=== PATIENT | female | born 1995 | race Caucasian/White ===

== ENCOUNTER 2018-03-31 21:39 | Inpatient (IN) | payer BC ==
[2018-03-31] MEDS ORDERED: METHYLERGONOVINE 0.2 MG INJ IM (23:30)
[2018-03-31] MEDS ORDERED: OXYTOCIN 30 UNITS/LR 500 ML IV (23:30)
[2018-03-31] MEDS ORDERED: CARBOPROST 250 MCG INJ IM (23:30)
[2018-03-31] MEDS ORDERED: LIDOCAINE 1% (MPF) 30 ML INJ INJ (23:30)
[2018-03-31] MEDS ORDERED: MISOPROSTOL 200 MCG TAB PR (23:30)
[2018-03-31] MEDS: ACETAMINOPHEN 500 MG TAB PO (23:31)
[2018-04-01] MEDS: LACTATED RINGER'S 1,000 ML IV* ×4 (00:12→23:32)
[2018-04-01 00:25] LABS: ADD MAN DIFF? NO
[2018-04-01 00:36] LABS: ABNORMAL IP MESSAGE 1; BASOPHILS % 0.4 % (0.0-2.0); EOSINOPHILS # 0.1 10^3/ul (0.0-0.5); EOSINOPHILS % 1.5 % (0.0-7.0); HEMATOCRIT 28.9 % (37.0-47.0); HEMOGLOBIN 9.1 g/dl (12.0-16.0); LYMPHOCYTES # 2.2 10^3/ul (0.8-2.9); LYMPHOCYTES % 27.1 % (18.0-55.0); MEAN CORPUSCULAR HEMOGLOBIN 24.3 pg (29.0-33.0); MEAN CORPUSCULAR HGB CONC 31.5 g/dl (32.0-37.0); MEAN CORPUSCULAR VOLUME 77.3 fl (72.0-104.0); MONOCYTE # 0.7 10^3/ul (0.3-0.9); MONOCYTES % 8.1 % (0.0-13.0); NEUTROPHILS % 62.5 % (30.0-74.0); PLATELET COUNT 186 10^3/UL (140-415); RED BLOOD COUNT 3.74 10^6/ul (4.20-5.40); RED CELL DISTRIBUTION WIDTH 20.5 % (11.5-14.5)
[2018-04-01 00:45] LABS: ALANINE AMINOTRANSFERASE 28 IU/L (13-69); ALBUMIN 2.8 g/dl (3.3-4.9); ALKALINE PHOSPHATASE 287 IU/L (42-121); ANION GAP 12 (8-16); ASPARTATE AMINO TRANSFERASE 29 IU/L (15-46); BILIRUBIN,INDIRECT 0.2 mg/dl (0-1.1); BILIRUBIN,TOTAL 0.2 mg/dl (0.2-1.3); BLOOD UREA NITROGEN 9 mg/dl (7-20); CALCIUM 9.1 mg/dl (8.4-10.2); CARBON DIOXIDE 23 mmol/L (21-31); CHLORIDE 106 mmol/L (97-110); CREATININE 0.57 mg/dl (0.44-1.00); GLUCOSE 90 mg/dl (70-220); LACTATE DEHYDROGENASE 491 IU/L (313-618); POTASSIUM 4.1 mmol/L (3.5-5.1); SODIUM 137 mmol/L (135-144); TOTAL PROTEIN 5.9 g/dl (6.1-8.1)
[2018-04-01 00:46] LABS: ALANINE AMINOTRANSFERASE 22 IU/L (13-69); ALKALINE PHOSPHATASE 286 IU/L (42-121); ANION GAP 12 (8-16); ASPARTATE AMINO TRANSFERASE 29 IU/L (15-46); BILIRUBIN,INDIRECT 0.3 mg/dl (0-1.1); BILIRUBIN,TOTAL 0.3 mg/dl (0.2-1.3); BLOOD UREA NITROGEN 9 mg/dl (7-20); CARBON DIOXIDE 22 mmol/L (21-31); CHLORIDE 107 mmol/L (97-110); CREATININE 0.59 mg/dl (0.44-1.00); GLUCOSE 94 mg/dl (70-220); POTASSIUM 3.8 mmol/L (3.5-5.1); SODIUM 137 mmol/L (135-144); TOTAL PROTEIN 6.3 g/dl (6.1-8.1)
[2018-04-01 00:47] LABS: POSITIVE DIFF @See below
[2018-04-01 00:57] LABS: ADD UMIC YES; UR ASCORBIC ACID NEGATIVE (NEGATIVE); UR BACTERIA FEW /HPF (NONE SEEN); UR BILIRUBIN (Dip) NEGATIVE (NEGATIVE); UR BLOOD (Dip) 1+ mg/dL (NEGATIVE); UR CLARITY CLEAR (CLEAR); UR COLOR YELLOW (YELLOW); UR GLUCOSE (Dip) NEGATIVE (NEGATIVE); UR KETONES (Dip) NEGATIVE (NEGATIVE); UR LEUKOCYTE ESTERASE (Dip) 3+ Leu/ul (NEGATIVE); UR NITRITE (Dip) NEGATIVE (NEGATIVE); UR RBC 0 /HPF (0-5); UR SPECIFIC GRAVITY (Dip) 1.012 (1.003-1.030); UR SQUAMOUS EPITHELIAL CELL FEW /HPF (FEW); UR TOTAL PROTEIN (Dip) NEGATIVE (NEGATIVE); UR UROBILINOGEN (Dip) NEGATIVE (NEGATIVE); UR WBC 10 /HPF (0-5)
[2018-04-01 00:58] LABS: INR 0.82; PROTIME 11.3 Sec (11.9-14.9); PT RATIO 0.9
[2018-04-01 00:59] LABS: PARTIAL THROMBOPLASTIN TIME 30.3 Sec (23.0-35.0)
[2018-04-01 01:15] LABS: HEPATITIS B SURFACE ANTIGEN NEGATIVE (NEGATIVE)
[2018-04-01] MEDS: MISOPROSTOL 50 MCG CAPSULE PO ×5 (01:25→20:17)
[2018-04-01] MEDS: ACETAMINOPHEN 500 MG TAB PO (10:20)
[2018-04-01] MEDS ORDERED: ACETAMINOPHEN 500 MG TAB PO (10:30)
[2018-04-01 17:54] LABS: RAPID PLASMA REAGIN NONREACTIVE (NR)
[2018-04-02] MEDS: MISOPROSTOL 50 MCG CAPSULE PO (00:37)
[2018-04-02] MEDS: BUTORPHANOL 2 MG INJ IV (02:19)
[2018-04-02] MEDS: LACTATED RINGER'S 1,000 ML IV (03:32)
[2018-04-02] MEDS ORDERED: LIDOCAINE 2% (SDV) 5 ML INJ (04:43)
[2018-04-02] MEDS ORDERED: FENTAnyl 2MCG/ML-ROPIV 0.2% 100 ML (04:58)
[2018-04-02] MEDS ORDERED: FENTAnyl 2MCG/ML-ROPIV 0.2% 100 ML BAG EPI (05:30)
[2018-04-02] MEDS ORDERED: ONDANSETRON 4 MG INJ IV ×2 (05:30→07:00)
[2018-04-02] MEDS ORDERED: NALOXONE (0.4 MG/ML) INJ IV (05:30)
[2018-04-02] MEDS: OXYTOCIN 30 UNITS/LR 500 ML IV ×3 (05:32→11:37)
[2018-04-02] MEDS ORDERED: ZOLPIDEM 5 MG TAB PO (07:00)
[2018-04-02] MEDS ORDERED: METHYLERGONOVINE 0.2 MG TAB PO (07:00)
[2018-04-02] MEDS ORDERED: OXYTOCIN 30 UNITS/LR 500 ML IV (07:00)
[2018-04-02] MEDS ORDERED: DIPHENHYDRAMINE 25 MG CAP PO (07:00)
[2018-04-02] MEDS ORDERED: MISOPROSTOL 200 MCG TAB PR (07:00)
[2018-04-02] MEDS ORDERED: NACL 0.9% 3 ML SYG IV (07:00)
[2018-04-02] MEDS ORDERED: CARBOPROST 250 MCG INJ IM (07:00)
[2018-04-02] MEDS ORDERED: ACETAMINOPHEN 325 MG TAB PO (07:00)
[2018-04-02] MEDS ORDERED: METHYLERGONOVINE 0.2 MG INJ IM (07:00)
[2018-04-02 08:03] LABS: HEMATOCRIT 29.6 % (37.0-47.0); HEMOGLOBIN 9.1 g/dl (12.0-16.0)
[2018-04-02] MEDS: HYDROCODONE/APAP (5/325) TAB PO ×2 (08:29→16:01)
[2018-04-02] MEDS: SENNA/DOCUSATE NA (8.6MG/50MG) TAB PO ×2 (09:16→21:25)
[2018-04-02] MEDS: WITCH HAZEL/GLYCERIN PAD PR (09:16)
[2018-04-02] MEDS: IBUPROFEN 600 MG TAB PO ×2 (11:36→17:37)
[2018-04-03] MEDS: IBUPROFEN 600 MG TAB PO ×4 (00:32→17:35)
[2018-04-03 07:39] LABS: ADD MAN DIFF? NO
[2018-04-03 07:45] LABS: BASOPHILS % 0.4 % (0.0-2.0); EOSINOPHILS # 0.1 10^3/ul (0.0-0.5); EOSINOPHILS % 0.9 % (0.0-7.0); HEMATOCRIT 24.5 % (37.0-47.0); HEMOGLOBIN 7.5 g/dl (12.0-16.0); LYMPHOCYTES # 2.8 10^3/ul (0.8-2.9); LYMPHOCYTES % 31.7 % (18.0-55.0); MEAN CORPUSCULAR HEMOGLOBIN 24.1 pg (29.0-33.0); MEAN CORPUSCULAR HGB CONC 30.6 g/dl (32.0-37.0); MEAN CORPUSCULAR VOLUME 78.8 fl (72.0-104.0); MONOCYTE # 0.5 10^3/ul (0.3-0.9); MONOCYTES % 5.6 % (0.0-13.0); NEUTROPHIL # 5.4 10^3/ul (1.6-7.5); NEUTROPHILS % 60.7 % (30.0-74.0); PLATELET COUNT 173 10^3/UL (140-415); RED BLOOD COUNT 3.11 10^6/ul (4.20-5.40); RED CELL DISTRIBUTION WIDTH 20.2 % (11.5-14.5)
[2018-04-03 07:45] LABS: WHITE BLOOD COUNT 8.9 10^3/ul (4.8-10.8)
[2018-04-03] MEDS: SENNA/DOCUSATE NA (8.6MG/50MG) TAB PO ×2 (09:59→21:02)
[2018-04-03] MEDS: LANOLIN 7 GM TUBE TOP (09:59)
[2018-04-03] MEDS: BENZOCAINE 20% 56 ML SPRAY TOP (15:26)
[2018-04-04] MEDS: IBUPROFEN 600 MG TAB PO ×3 (00:05→11:25)
[2018-04-04] MEDS: WITCH HAZEL/GLYCERIN PAD PR ×2 (04:52→09:38)
[2018-04-04] MEDS: SENNA/DOCUSATE NA (8.6MG/50MG) TAB PO (09:38)
[2018-04-04] MEDS: BENZOCAINE 20% 56 ML SPRAY TOP (09:38)
[2018-04-04] MEDS: MEASLES,MUMPS,RUBELLA VACCINE INJ SC* (09:39)
[2018-04-04] MEDS: DIPHTH/TET/ACEL PERTUSS (ADULT) 0.5 ML VIAL IM* (09:39)
[2018-04-04] MEDS: VARICELLA VACCINE LIVE/PF 1,350 UNIT/0.5 ML ML SC* (09:39)
== END 2018-04-04 17:21 | disposition home or self-care (01) | DRG 807 ==
LOC: OBT 21:39 → L-D 23:45 → PP1 04-02 08:21 → L-D 21:40 → OBT 23:45
PROC: 10E0XZZ Delivery of Products of Conception, External Approach (ICD-10-PCS; principal; 2018-04-02)
PROC: 0KQM0ZZ Repair Perineum Muscle, Open Approach (ICD-10-PCS; 2018-04-02)
DX: O14.94 Unspecified pre-eclampsia, complicating childbirth (principal); O70.1 Second degree perineal laceration during delivery; Z37.0 Single live birth; Z3A.39 39 weeks gestation of pregnancy
CPT/HCPCS: 62319; 76818; 80053; 80069; 80076; 81001; 83615; 84560; 85014; 85018; 85025; 85384; 85610; 85730; 86592; 86850; 86900; 86901; 87340; 90715; 90716